=== PATIENT | female | born 1950 | race Caucasian/White ===

== ENCOUNTER 2016-03-20 09:20 | Observation (INO) | payer BC, OTHER ==
[~2016-03-20] VITALS: Ht 157.5 cm; Wt 91.3 kg
[2016-03-20] MEDS ORDERED: MAXZIDE 37.5 M1 EACH PO (10:04)
[2016-03-20] MEDS ORDERED: ASPIR 8181 M1 PO (10:04)
[2016-03-20] MEDS ORDERED: CHLORDIAZEPOXI1 EACH PO (10:04)
[2016-03-20] MEDS ORDERED: ZANTAC300 MG PO (10:05)
[2016-03-20] MEDS ORDERED: CLARITIN,ALAVAR10 MG PO (10:05)
[2016-03-20] MEDS ORDERED: SINGULAIR10 MG PO (10:05)
[2016-03-20] MEDS ORDERED: DIFLUCAN150 MG PO (10:06)
[2016-03-20] MEDS ORDERED: VAGIFEM10 MCG VG (10:06)
[2016-03-20] MEDS ORDERED: KLOR-CON M2020 MEQ PO (10:06)
[2016-03-20] MEDS ORDERED: SUDAFED 12-HOU120 MG PO (10:07)
[2016-03-20] MEDS ORDERED: MOTRIN400 MG PO (10:07)
[2016-03-20] MEDS ORDERED: LORAZEPAM0.5 MG PO (10:08)
[2016-03-20] MEDS ORDERED: BONINE25 MG PO (10:08)
[2016-03-20 10:10] LABS: MCH 30.6 PG (29.0-34.0); MCHC 36.7 G/DL (30.0-36.0); MCV 83.5 FL (83-99); MEAN PLAT.VOLUME 8.9 uM^3 (9.5-12.4); PLATELET COUNT 355 K/uL (156-360); RBC DIS.WIDTH-CV 12.2 % (11.8-14.6); RBC DIS.WIDTH-SD 36.8 % (39-53); RED BLOOD COUNT 4.67 M/uL (3.80-5.20); WHITE BLOOD COUNT 12.3 K/uL (4.1-10.2)
[2016-03-20 10:11] LABS: EOSINOPHIL (%) 0.2 % (0-5); IMMATURE GRANULOCYTE (%) 0.7 % (0.0-0.7); IMMATURE GRANULOCYTE COUNT 0.9 K/uL; LYMPHOCYTE COUNT 2.8 K/uL (1.0-2.8); MONOCYTE (%) 9.1 % (3-12); MONOCYTE COUNT 1.1 K/uL (0-0.8); NEUTROPHIL (%) 67.1 % (45-76); NEUTROPHIL COUNT 8.2 K/uL (1.8-6.4)
[2016-03-20 10:21] LABS: CHLORIDE 96 mEq/L (99-109); POTASSIUM 3.7 mEq/L (3.7-5.4); SODIUM 132 mEq/L (136-147)
[2016-03-20 10:23] LABS: GLUCOSE 105 mg/dL (70-99)
[2016-03-20 10:24] LABS: ANION GAP 12 MEQ/L (2-14); D-DIMER ELISA 0.21 mg/L FEU (< 0.57)
[2016-03-20 10:25] LABS: TOTAL BILIRUBIN 0.6 mg/dL (0.0-1.0)
[2016-03-20 10:26] LABS: ALKALINE PHOSPHATASE 59 IU/L (3-129)
[2016-03-20 10:27] LABS: GFR ESTIMATE (CALCULATED) > 59 mL/min/
[2016-03-20 10:28] LABS: UREA NITROGEN (BUN) 13 mg/dL (9-23)
[2016-03-20 10:31] LABS: TROP-I INTERPRETATION NEGATIVE; TROPONIN-I < 0.01 ng/mL (0.0-0.30)
[2016-03-20] MEDS ORDERED: DIFLUCAN100 MG PO (12:05)
[2016-03-20] MEDS ORDERED: ANTIVERT25 MG PO ×2 (12:12)
[2016-03-20] MEDS ORDERED: SEPTRA DS TABL1 EACH PO (12:16)
[2016-03-20 15:17] VITALS: BP 157/81
[2016-03-20 16:04] LABS: TROP-I INTERPRETATION NEGATIVE; TROPONIN-I < 0.01 ng/mL (0.0-0.30)
[2016-03-20 21:15] VITALS: BP 156/74
[2016-03-20 22:04] LABS: TROP-I INTERPRETATION NEGATIVE; TROPONIN-I 0.02 ng/mL (0.0-0.30)
[2016-03-21 00:13] VITALS: BP 148/72
[2016-03-21 04:23] VITALS: BP 110/67
[2016-03-21 06:09] LABS: HEMATOCRIT 40.7 % (36.0-46.0); MCH 29.6 PG (29.0-34.0); MCHC 34.2 G/DL (30.0-36.0); MCV 86.6 FL (83-99); PLATELET COUNT 319 K/uL (156-360); RBC DIS.WIDTH-CV 12.7 % (11.8-14.6); RBC DIS.WIDTH-SD 40.1 % (39-53); WHITE BLOOD COUNT 11.2 K/uL (4.1-10.2)
[2016-03-21 06:40] LABS: ANION GAP 11 MEQ/L (2-14); CHLORIDE 96 MEQ/L (99-109); GFR ESTIMATE (CALCULATED) > 59 mL/min/; GLUCOSE 107 mg/dL (70-99); POTASSIUM 3.9 MEQ/L (3.7-5.4); SAMPLE HEMOLYSIS CHECK 0; SAMPLE ICTERIC CHECK 0; SAMPLE LIPEMIA CHECK 0; SODIUM 132 MEQ/L (136-147); UREA NITROGEN (BUN) 14 mg/dL (9-23)
[2016-03-21 07:52] VITALS: BP 139/83
== END 2016-03-21 12:30 | disposition home or self-care (01) ==
LOC: EME → EDBD 09:42 → EME 09:42 → EDOF 13:44 → 5WEST 13:44 → EDOF 13:44 → 5WEST 14:50
PROVIDERS: Emergency Medicine; Physician Assistant
DX: R07.9 Chest pain, unspecified (principal); I10 Essential (primary) hypertension; E03.9 Hypothyroidism, unspecified; R91.1 Solitary pulmonary nodule; Z79.82 Long term (current) use of aspirin; R00.2 Palpitations; H81.09 Meniere's disease, unspecified ear; Z87.891 Personal history of nicotine dependence; Z88.1 Allergy status to other antibiotic agents; Z88.5 Allergy status to narcotic agent; Z88.8 Allergy status to other drugs, medicaments and biological substances
CPT/HCPCS: 71020; 71250; 80048; 80053; 81003; 84484; 85025; 85027; 85379; 87086; 93005; 99281; 99285; G0378

== ENCOUNTER 2016-07-13 08:36 | Emergency (ER) | payer BC, OTHER ==
[~2016-07-13] VITALS: Ht 162.6 cm; Wt 85.5 kg
[~2016-07-13 08:36] MED LIST: ANTIVERT25 MG PO; ASPIR 8181 M1 PO; BONINE25 MG PO; CHLORDIAZEPOXI1 EACH PO; CLARITIN,ALAVAR10 MG PO; DIFLUCAN100 MG PO; DIFLUCAN150 MG PO; KLOR-CON M2020 MEQ PO; LORAZEPAM0.5 MG PO; MAXZIDE 37.5 M1 EACH PO; MOTRIN400 MG PO; SEPTRA DS TABL1 EACH PO; SINGULAIR10 MG PO; SUDAFED 12-HOU120 MG PO; VAGIFEM10 MCG VG; ZANTAC300 MG PO
[2016-07-13 09:09] LABS: EOSINOPHIL (%) 0.6 % (0-5); EOSINOPHIL COUNT 0.1 K/uL (0-0.3); HEMATOCRIT 40.2 % (36.0-46.0); IMMATURE GRANULOCYTE (%) 0.6 % (0.0-0.7); IMMATURE GRANULOCYTE COUNT 0.1 K/uL; LYMPHOCYTE COUNT 1.8 K/uL (1.0-2.8); MCH 29.8 PG (29.0-34.0); MCHC 35.1 G/DL (30.0-36.0); MEAN PLAT.VOLUME 8.5 uM^3 (9.5-12.4); MONOCYTE (%) 8.6 % (3-12); MONOCYTE COUNT 0.9 K/uL (0-0.8); NEUTROPHIL (%) 71.5 % (45-76); PLATELET COUNT 336 K/uL (156-360); RBC DIS.WIDTH-SD 36.9 % (39-53); RED BLOOD COUNT 4.73 M/uL (3.80-5.20); WHITE BLOOD COUNT 9.8 K/uL (4.1-10.2)
[2016-07-13 09:17] LABS: CHLORIDE 97 mEq/L (99-109); POTASSIUM 3.4 mEq/L (3.7-5.4); SODIUM 131 mEq/L (136-147)
[2016-07-13 09:19] LABS: GLUCOSE 111 mg/dL (70-99)
[2016-07-13 09:20] LABS: ANION GAP 10 MEQ/L (2-14)
[2016-07-13 09:23] LABS: GFR ESTIMATE (CALCULATED) > 59 mL/min/
[2016-07-13 09:24] LABS: UREA NITROGEN (BUN) 13 mg/dL (9-23)
[2016-07-13 10:03] LABS: ADD MIUA? YES; BILIRUBIN NEGATIVE; BLOOD SMALL; COLOR YELLOW ((YELLOW)); GLUCOSE (STRIP) NEGATIVE; KETONES NEGATIVE; LEUKOCYTES MODERATE; NITRITE POSITIVE; PROTEIN (STRIP) NEGATIVE; SPECIFIC GRAVITY 1.012 (1.000-1.030); UROBILINOGEN 0.2 MG/DL (0.2-1.0)
[2016-07-13 10:07] LABS: INTERNAL CONTROL VALID? YES
[2016-07-13 10:16] LABS: BACTERIA 2+ /HPF; EPITHELIAL CELLS 1+ /HPF; MUCUS TRACE /LPF; WHITE BLOOD CELLS 20-30 /HPF (0-5)
[2016-07-13] MEDS ORDERED: BACTRIM,SEPT1 TABLET PO (10:36)
[2016-07-13] MEDS ORDERED: ZOFRAN4 MG PO (10:39)
[2016-07-13] MEDS ORDERED: NAPROSYN500 MG PO (10:39)
[2016-07-13] MEDS ORDERED: PERCOCET 5/31 TABLET PO (10:39)
[2016-07-13 10:41] VITALS: BP 139/83
== END 2016-07-13 11:14 | disposition home or self-care (01) ==
LOC: EME → EDBD 08:36 → EME 11:14
PROVIDERS: Emergency Medicine
DX: N39.0 Urinary tract infection, site not specified (principal); R25.2 Cramp and spasm; R10.11 Right upper quadrant pain; G89.29 Other chronic pain; I10 Essential (primary) hypertension; K21.9 Gastro-esophageal reflux disease without esophagitis; F41.9 Anxiety disorder, unspecified; Z88.8 Allergy status to other drugs, medicaments and biological substances
CPT/HCPCS: 74176; 80048; 81003; 84703; 85025; 87077; 87086; 87186; 99281; 99285; J1885; J2270; J2405; J7030